=== PATIENT | male | born 1955 | race Caucasian/White ===

== ENCOUNTER → 2022-02-20 | Outpatient (CLI) | payer MEDICARE, BC ==
[~2022-02-20] MED LIST: ALBUTEROL0.63 MG/3 NEB; COMBIGAN EYE DRO5 ML; COMBIVENT RESPIM4 GM IH; FLUOXETINE HCL10 M1 PO; LISINOPRIL10 MG PO; MOBIC7.5 MG PO; MONTELUKAST SOD10 MG PO; PROVENTIL HFA6.7 GM INH
[2022-02-20 08:55] LABS: BASOPHILS # (AUTO) 0.1 (0.0-0.1); BASOPHILS % 0.9 % (0.0-1.0); EOSINOPHILS # (AUTO) 0.5 (0.0-0.4); EOSINOPHILS % 6.3 % (0.0-6.0); HEMATOCRIT 46.6 % (38.2-49.6); HEMOGLOBIN 15.2 g/dL (14.0-18.0); LYMPHOCYTES % 25.5 % (18.0-39.1); MEAN CORPUSCULAR HEMOGLOBIN 29.6 pg (28-32); MEAN CORPUSCULAR HGB CONC 32.6 g/dL (31-35); MEAN CORPUSCULAR VOLUME 90.8 fL (81-99); MONOCYTES # (AUTO) 0.7 (0.2-0.8); MONOCYTES % 9.1 % (4.4-11.3); NEUTROPHILS # (AUTO) 4.6 (2.1-6.9); NEUTROPHILS % 57.9 % (38.7-80.0); PLATELET COUNT 268 x10e3/uL (140-360); RED BLOOD COUNT 5.13 x10e6/uL (4.3-5.7); RED CELL DISTRIBUTION WIDTH 12.1 % (11.7-14.4)
== END ==
LOC: LAB 08:45 → EDSTATUS 02-24 10:30
PROVIDERS: ATTEND Internal Medicine Gastroenterology
DX: Z01.812 Encounter for preprocedural laboratory examination (principal); Z12.11 Encounter for screening for malignant neoplasm of colon
CPT/HCPCS: 0223U; 36415; 85025